=== PATIENT | male | born 1975 | race Caucasian/White ===

== ENCOUNTER 2020-12-14 12:42 | Emergency (ER) | payer OTHER ==
[~2020-12-14 12:42] MED LIST: NAPROXEN500 MG PO
[2020-12-14] MEDS ORDERED: DICLOFENAC SODI75 MG PO (14:12)
== END 2020-12-14 14:33 | disposition home or self-care (01) ==
LOC: FER 12:42
DX: S02.5XXA Fracture of tooth (traumatic), initial encounter for closed fracture (principal); S00.83XA Contusion of other part of head, initial encounter; K02.9 Dental caries, unspecified; F17.210 Nicotine dependence, cigarettes, uncomplicated; Z88.6 Allergy status to analgesic agent; W20.8XXA Other cause of strike by thrown, projected or falling object, initial encounter
CPT/HCPCS: 70486